=== PATIENT | male | born 1960 | race Caucasian/White ===

== ENCOUNTER 2016-12-01 10:56 | Outpatient (CLI) | payer BC, OTHER ==
[~2016-12-01] VITALS: Ht 180.3 cm; Wt 163.3 kg
--- NOTE | ~2016-12-01 | EKG ---
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
--- NOTE | ~2016-12-01 | CATHLAB ---
[facility] [place] [address] INVASIVE PROCEDURE REPORT Name: JANAE HARRIS Room #: 218-P REG ON LICENSE OF [facility]#: [id number] Admission: 12/01/16 Attend Phys: Jose Armando Velasco MD Discharge: Date of : 60 Date of Service: 12/01/16 184 Report #: [id number] THIS REPORT FOR: //name// APPROVED REPORT Patient Details Patient Status: In-Patient Room #: The patient is a 56 year-old male Event Personnel Jose Armando Velasco Bead Wrapper, Melia Comer, Yves Wilde RN, David Lowe Scrub Procedures Performed Left Heart Cath w/or w/o Coronaries [id number] [facility] BMS Place w/wo Plasty Single OM [id number] BMSSINGLE Indication Dyspnea, Positive stress test, Pre-op clearance Risk Factors Obesity, Hypercholesterolemia, Hypertension, Diabetes Procedure Narrative The Right Wrist^ and right groin was infiltrated with 1% Lidocaine subcutaneous anesthesia. A PINNACLE 6FR Sheath #[id number] sheath was inserted into the RFA. Coronary angiography was performed using coronary diagnostic catheters. The right coronary system was accessed and visualized with a JR4 catheter. The left coronary system was accessed and visualized with a JL3.5 catheter. The left ventricle was accessed and visualized with a PIGTAIL catheter. Left ventricular/Aortic Valve gradient assessed via catheter pullback. Closure device was deployed with a 6 Fr MYNXGRIP 6/7F #[id number]. The patient tolerated the procedure well and there were no complications associated with the procedure. There was no hematoma. Intraoperative Conscious Sedation Sedation start time: 13:24 Case end Time: 14:44 Fentanyl 100.0 mcg Versed 2.0 mg Fluoro Time: 19.49 minutes Dose: DAP 95429.00 cGycm2 3855 mGy Contrast Type and Amount: Omnipaque 310 ml [facility] [place] [address] INVASIVE PROCEDURE REPORT Name: JANAE HARRIS Room #: 218-P [facility]#: [id number] Admission: 12/01/16 Attend Phys: Jose Armando Velasco MD Discharge: Date of : 60 Date of Service: 12/01/16 1842 Report #: [id number] Coronary Angiography The patient's coronary anatomy is right dominant. Diagnostic Cath Left Main Patent vessel, with no flow-limiting lesions. LAD Moderate to large size caliber vessel, with mild disease in proximal and mid segments. Diagonal 2 Moderate size caliber vessel, with no flow-limiting lesions. Circumflex Moderate size caliber vessel, with mild plaquing in the proximal segment. OM1 Has a high takeoff of the left circumflex artery, patent with no flow-limiting lesions. OM2 Has a severe stenosis in the ostial/proximal segment, at least 95%. Right Coronary Dominant vessel with moderate disease in the proximal and mid segments, 40-50%. R PDA Patent, with no flow-limiting lesions. RPLV 100% occlusion in the proximal segment. Left Ventriculography A catheter was placed in the left ventricle to measure LVEDP and outflow tract gradient. Hemodynamics The aortic pressure is 128/86 mmHg with a mean of 107 mmHg. The left ventricular pressure is 164/5 mmHg with a mean of mmHg. The left ventricular end diastolic pressure is 23 mmHg. There was no gradient across the aortic valve upon pullback. Pullback from the left ventricle to the aorta revealed no gradient across the aortic valve. PCI Technique Lesion Anticoagulation was achieved with Angiomax. Percutaneous coronary intervention was performed on the second obtuse marginal branch segment. A VISTA 6FR JL4 #[id number] Guide Catheter was used to engage the LCA ostium. A Luge Wire .014 x 182CM #[id number] Interventional Guidewire was used to cross the lesion. BALLOON DILATION A Balloon catheter Euphora RX 2.25 x 12 #[id number] was inserted and inflated up to 8.00atm for 12seconds. Additional Inflation: 8.00atm for 13seconds. Additional Inflation: 8.00atm for 14seconds. STENT DEPLOYMENT A bare metal stent INTEGRITY RX 2.25 X 18 #[id number] was inserted and [facility] [address] [place] [address] INVASIVE PROCEDURE REPORT Name: JANAE HARRIS Room #: 218-P [facility]#: [id number] Admission: 12/01/16 Attend Phys: Jose Armando Velasco MD Discharge: Date of : 60 Date of Service: 12/01/16 1842 Report #: [id number] inflated up to 16.00atm for 29seconds. Final angiography reveals 10 % stenosis with MAGGIE 3 flow. COMMENTS The diagnostic cardiac catheterization was performed via the right radial artery access. However, due to tortuosity and vasospasm, the coronary intervention was performed via the right femoral artery access. Conclusion 1. Successful insertion of a bare metal stent into the second obtuse marginal artery. 2. Recommend 4 weeks of dual antiplatelet therapy. 3. The patient can proceed with surgery during the fifth week. <ELECTRONICALLY SIGNED> By: Jose Armando Velasco MD 12/01/161841 41 41 Jose Armando Velasco MD /INF
--- NOTE | ~2016-12-01 | D ---
[facility] [place] [address] DISCHARGE SUMMARY Name: STEVENJANAE MCCAIN Room #: DEP [facility]#: [id number] Admission: 12/01/16 Attend Phys: Jose Armando Velasco MD Discharge: 12/02/16 Date of : 60 Report #: [id number] THIS REPORT FOR: //name// CC: Jese Beck DATE OF SERVICE: 12/02/2016 FINAL DISPOSITION: 1. Coronary artery disease, status post coronary angioplasty. 2. History of myocardial infarction. 3. Hypertension. 4. Hypercholesterolemia. 5. Obstructive sleep apnea. 6. Obesity. 7. Osteoarthritis. HOSPITAL COURSE: Please see the original H and P for full details. The patient presented for preoperative evaluation for a total knee replacement. The ECG revealed Q-waves in the inferior leads. A nuclear stress test revealed an incomplete inferior wall infarct with moderate periinfarct ischemia. The EF was in the 42% range. It was difficult to assess his functional capacity given his osteoarthritis. Please see the cardiac catheterization report for full details. The right posterolateral branch was totally occluded at the proximal segment, representing the inferior wall infarct. There was a severe occlusion involving a second obtuse marginal artery. Angioplasty was performed with placement of a bare metal stent. He has remained hemodynamically stable overnight. The plan is to continue with dual antiplatelet therapy for 4 weeks. He should be stable to proceed with a total knee replacement at the fifth week interval. FINAL DISPOSITION: He will continue with Diovan HCT 320/25 mg daily. He was started on aspirin 81 mg, Plavix 75 mg daily and Lipitor 40 mg daily. He will continue with Proventil, Zyrtec and vitamins. He was given instructions for followup in the office. <ELECTRONICALLY SIGNED> By: Jose Armando Velasco MD 12/04/16 0759 0917 0944 Jose Armando Velasco MD /nt
[2016-12-01] MEDS ORDERED: DIOVAN320 MG PO (11:21)
[2016-12-01] MEDS ORDERED: HYDROCHLOROTHIA25 M1 PO (11:22)
[2016-12-01] MEDS ORDERED: ACETAMINOPHEN-1 EAC1 PO (11:22)
[2016-12-01] MEDS ORDERED: MOBIC15 MG PO (11:23)
[2016-12-01] MEDS ORDERED: VENTOLIN HFA 1818 GM INH (11:23)
[2016-12-01] MEDS ORDERED: ZYRTEC10 M2 PO (11:23)
[2016-12-01] MEDS ORDERED: VITAMIN B-12500 MCG PO (11:23)
[2016-12-01] MEDS ORDERED: MAXIMUM DAILY1 EACH PO (11:24)
[2016-12-01] MEDS ORDERED: NASACORT10.8 ML INH (11:26)
[2016-12-01 11:36] VITALS: BP 150/82
[2016-12-01 11:49] LABS: CALCIUM 9.3 mg/dL (8.5-10.1); POTASSIUM 3.9 mmol/L (3.5-5.1)
[2016-12-01 11:59] LABS: HEMATOCRIT 47.1 % (42.0-52.0); HEMOGLOBIN 15.9 gm/dL (14.0-18.0); MCH 31.2 pg (26.0-34.0); MCHC 33.8 g/dL (28.0-37.0); MCV 92.3 fL (80.0-100.0); RBC 5.1 mil/uL (4.50-6.00); RDW 13.4 % (10.5-14.5); WBC 10.7 thou/uL (4.0-11.0)
[2016-12-01] MEDS ORDERED: TESTOSTERO200 MG/11 PO (12:03)
[2016-12-01 16:55] VITALS: BP 133/79
[2016-12-01 17:00] VITALS: BP 133/79
[2016-12-01 19:45] VITALS: BP 130/75
[2016-12-02 00:15] VITALS: BP 112/64
[2016-12-02 04:15] VITALS: BP 115/76
[2016-12-02 07:55] VITALS: BP 155/82
[2016-12-02 08:47] LABS: HEMATOCRIT 44.8 % (42.0-52.0); HEMOGLOBIN 15.1 gm/dL (14.0-18.0); MCHC 33.6 g/dL (28.0-37.0); MCV 92.4 fL (80.0-100.0); RBC 4.85 mil/uL (4.50-6.00); RDW 13.5 % (10.5-14.5)
[2016-12-02 09:00] LABS: CALCIUM 9.5 mg/dL (8.5-10.1)
[2016-12-02] MEDS ORDERED: PLAVIX 75 MG TA75 M1 PO (09:13)
[2016-12-02] MEDS ORDERED: ATORVASTATIN CA40 MG PO (09:14)
[2016-12-02] MEDS ORDERED: LOPRESSOR25 PO (09:19)
[2016-12-02 09:38] VITALS: BP 155/82
== END 2016-12-02 10:50 | disposition home or self-care (01) ==
LOC: CATH 10:56 → 2N 17:09 → ENTRNSPT 12-02 10:23 → CATH 12-02 10:50
PROVIDERS: Internal Medicine Cardiovascular Disease
DX: I25.10 Atherosclerotic heart disease of native coronary artery without angina pectoris (principal); E78.00 Pure hypercholesterolemia, unspecified; I10 Essential (primary) hypertension; E11.9 Type 2 diabetes mellitus without complications; M19.90 Unspecified osteoarthritis, unspecified site; E66.01 Morbid (severe) obesity due to excess calories; Z98.890 Other specified postprocedural states; J44.9 Chronic obstructive pulmonary disease, unspecified; Z82.49 Family history of ischemic heart disease and other diseases of the circulatory system
CPT/HCPCS: 10081